=== PATIENT | male | born 1980 | race Asian ===

== ENCOUNTER 2019-04-05 10:04 | Outpatient (CLI) | payer BC ==
--- NOTE | 2019-04-05 10:31 | RAD ---
XR Chest Pa Lat STANDARD HISTORY: Bronchitis, cough COMPARISON: None FINDINGS: The heart size is normal. The lungs are well expanded without focal areas of consolidation, pneumothorax or pleural effusions. IMPRESSION: No radiographic evidence of acute cardiopulmonary process.
== END 2019-04-05 10:05 | disposition home or self-care (01) ==
LOC: BICRAD 10:04
PROVIDERS: ATTEND Internal Medicine Nephrology
DX: I11.9 Hypertensive heart disease without heart failure (principal); J40 Bronchitis, not specified as acute or chronic; G47.33 Obstructive sleep apnea (adult) (pediatric); R80.9 Proteinuria, unspecified
CPT/HCPCS: 71046

== ENCOUNTER 2019-08-16 08:49 | Day surgery (SDC) | payer BC ==
--- NOTE | 2019-08-15 08:10 | HP ---
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 for work. He is . He is followed by Dr. Fahad Perez for his high blood pressure. He has mildly elevated glucoses. He has been instructed to lose weight, which he is working on. He has developed discomfort in his right groin and Dr. Fahad Perez appreciated a right inguinal hernia on exam. He has had this for more than a year. He has mild discomfort in his left side. Today on exam, he has a right inguinal hernia and possible left, plan is for laparoscopic robot mesh repair of right inguinal hernia, possible left, pending the operative findings. He understands risks and benefits, consents. ALLERGIES: NONE. SOCIAL HISTORY: Tobacco, none. Alcohol, none. PAST MEDICAL HISTORY: Hypertension and DARCI. MEDICATIONS: 1. Propanolol 10 mg twice a day. 2. Amlodipine 5 mg twice a day. 3. Lisinopril 12.5 mg a day. 4. CPAP. REVIEW OF SYSTEMS: Noncontributory. PHYSICAL EXAMINATION: VITAL SIGNS: 229 pounds, 67 inches, and 35 BMI. 128/68, 67, and 98.4 degrees. LUNGS: Clear to auscultation. CARDIAC: Regular rate and rhythm without murmur or gallop. ABDOMEN: Soft, obese, and nontender. On standing, he has a right inguinal hernia, enlarging on Valsalva. Testicles are normal. Right testicle slightly higher than the left. Left inguinal hernia is difficult to examine some mild discomfort on the left. Equivocal exam for left inguinal hernia due to difficulty in examining him due to his obesity. EXTREMITIES: Unremarkable. ASSESSMENT AND PLAN: 1. Right inguinal hernia, plan laparoscopic robot repair using mesh, possible left, pending operative findings. He understands risks and benefits. 2. Obesity metabolic syndrome. Encouraged weight reduction. 3. Diabetes. 4. Prediabetes. 5. Hypertension. 6. Sleep apnea. Job ID: [id number]
[2019-08-15 09:14] VITALS: BMI 35.2
[~2019-08-16 08:49] MED LIST: Bupivacaine PF 0.5% 30 ML VIAL ONE; Lidocaine 1% w/Epinephrine 1:100K 20 ML VIAL ONE
[2019-08-16] MEDS ORDERED: Ketorolac Tromethamine 30 MG/ML VIAL ONE (09:06)
[2019-08-16] MEDS ORDERED: Gabapentin 300 MG CAP ONE (09:07)
[2019-08-16] MEDS ORDERED: Acetaminophen 500 MG TAB ONE (09:07)
[2019-08-16] MEDS ORDERED: Glycopyrrolate 0.2 MG/ML 5 ML SYRINGE ONE (09:31)
[2019-08-16] MEDS ORDERED: Rocuronium Bromide 10 MG/ML (10ML VIAL) ONE (09:31)
[2019-08-16] MEDS ORDERED: Dexamethasone 20 MG/5 ML VIAL ONE (09:31)
[2019-08-16] MEDS ORDERED: Lidocaine 1% PF 5 ML VIAL ONE (09:31)
[2019-08-16] MEDS ORDERED: EPHEDRINE 25 MG/5 ML SYRINGE ONE (09:31)
[2019-08-16] MEDS ORDERED: PROPOFOL 200 MG/20 ML VIAL ONE (09:31)
[2019-08-16] MEDS ORDERED: Ondansetron PF 4 MG/2 ML Vial ONE (09:31)
[2019-08-16 09:45] LABS: #Basophils 0.1 thou/uL (0.0-0.2); #Eosinphils 0.1 thou/uL (0.0-0.7); #Lymphocytes 2.2 thou/uL (1.20-3.40); #Monocytes 0.5 thou/uL (0.11-0.59); #Neutrophils 3.9 thou/uL (1.40-6.50); %Basophils 0.8 % (0.0-1.0); %Eosinophils 1.5 % (0.0-10.0); %Monocytes 7.6 % (0.0-10.0); %Neutrophils 57.2 % (42.0-75.0); Hemoglobin 15.6 g/dL (14.0-18.0); Mean Corpuscular HGB CONC 35.2 g/dL (32.0-36.0); Mean Corpuscular Hemoglobin 31.6 pg (27.0-31.0); Mean Corpuscular Volume 89.8 fL (78.0-98.0); Mean Platelet Volume 9.3 fL (7.4-10.4); Platelet Count 236 thou/uL (130-400); RBC Distribution Width 11.8 % (11.5-14.5); Red Blood Cell (RBC) Count 4.93 mill/uL (4.70-6.10); White Blood Cell (WBC) Count 6.8 thou/uL (4.8-10.8)
[2019-08-16] MEDS ORDERED: HYDROmorphone 0.5 MG/0.5 ML SYRINGE ONE (09:46)
[2019-08-16] MEDS ORDERED: Fentanyl 100 MCG/2 ML VIAL ONE (09:46)
--- NOTE | 2019-08-16 12:01 | OP ---
DATE OF PROCEDURE: 08/16/2019 PREOPERATIVE DIAGNOSIS: Right inguinal hernia, indirect. POSTOPERATIVE DIAGNOSIS: Right inguinal hernia, indirect. PROCEDURE PERFORMED: Robot laparoscopic 3D Bard mesh large repair right inguinal hernia. ANESTHESIA: General, local 0.5% Marcaine 30 mL mixed with 1% Xylocaine with epinephrine 20 mL. DESCRIPTION OF PROCEDURE: The patient was taken to the operating room, where in supine position under general anesthesia, abdomen was clipped of hair, prepared with ChloraPrep and draped in routine fashion. Local anesthetic was infiltrated in the skin and subcutaneous tissue about the operative sites. A supraumbilical left of midline incision was made. Pneumoperitoneum to 15 mmHg was obtained with a Veress needle, replaced with an 11 balloon port. Laparoscope inserted in bilateral far lateral anterior axial line, 8 mm ports through incisions. The robot was docked and robotic hernia repair undertaken. Right inguinal hernia was identified. Peritoneal flap dissected free on the right from the midline to the anterior superior iliac spine, dissected free medially and laterally, identifying Papito ligament and retroperitoneum respectfully. Cord structures dissected free. Lipoma of the cord dissected free. Hernia sac dissected free and exposing about a 6 to 8 cm segment of the cord structures. Good hemostasis noted. 3D Bard Max large mesh placed, properly oriented and secured the Papito ligament with a 2-0 Vicryl and anterior abdominal wall to the patient's right of the inferior epigastric vessels with 3-0 Vicryl. Mesh properly positioned and peritoneal flap closed with continuous suture #3-0 Stratafix. Good hemostasis noted. Pneumoperitoneum reduced as all needles retrieved and all instruments were removed and all skin incisions were approximated with subdermal 4-0 Monocryl and [place] glue applied. Job ID: [id number]
[2019-08-16] MEDS ORDERED: HYDROcodone/Acetaminophen 5/325 mg Tablet ONE (12:30)
== END 2019-08-16 13:45 | disposition home or self-care (01) ==
LOC: SDC 08:49
PROVIDERS: ATTEND Specialist
PROC: 0YU54JZ Supplement Right Inguinal Region with Synthetic Substitute, Percutaneous Endoscopic Approach (ICD-10-PCS; principal; 2019-08-16)
DX: K40.90 Unilateral inguinal hernia, without obstruction or gangrene, not specified as recurrent (principal); I10 Essential (primary) hypertension; G47.33 Obstructive sleep apnea (adult) (pediatric); E11.9 Type 2 diabetes mellitus without complications; E66.9 Obesity, unspecified; Z68.35 Body mass index [BMI] 35.0-35.9, adult; Z79.899 Other long term (current) drug therapy; Z99.89 Dependence on other enabling machines and devices
CPT/HCPCS: 85025; C1781; J0690; J1100; J1170; J1885; J2001; J2405; J2704; J3010; S0020